=== PATIENT | male | born 1945 | race African-American/Black ===

== ENCOUNTER 2020-04-17 14:45 | Emergency (ER) | payer MEDICARE, MEDICAID ==
[2020-04-17] MEDS ORDERED: VANCOMYCIN HCL INJ 1000 MG VIAL IV ONE (16:09)
--- NOTE | 2020-04-17 16:11 | ER Document Report ---
ED Medical Screen (RME) - General Chief Complaint: Abscess Stated Complaint: ABSCESS/RIGHT FOOT Time Seen by Provider: 04/17/20 16:01 Mode of Arrival: Ambulatory Information source: Patient, Outside Facility Records Notes: HPI; 74-year-old male presents to the emergency room from an assisted living facility with a staff member who states they were sent to the emergency room by [facility] and care for an ulceration to his right lower leg that is chronic. Staff member states that when he was seen in the office today they were told that the ulceration goes all the way to the bone and that he needs to come to the emergency room for IV antibiotics. Staff member does not know how long the ulcer has been there. Denies any fevers. Not currently on any antibiotics. Patient offers no complaints. PE: Patient is alert to name only. Extremely hard of hearing. Offers no complaints. Lungs: Clear to auscultation without rales, rhonchi or wheezes heart: Regular rate rhythm without murmurs, rubs, gallops. Right lower leg with a dressing dry and intact. Did not move the dressing in triage. There is a weak right pedal pulse palpated. I have greeted and performed a rapid initial assessment of this patient. A comprehensive ED assessment and evaluation of the patient, analysis of test results and completion of the medical decision making process will be conducted by additional ED providers. I have specifically instructed the patient or family members with the patient to immediately return to any nursing staff should anything change in the patient's condition or with their chief complaint. TRAVEL OUTSIDE OF THE [place] IN LAST 30 DAYS: No - Related Data Allergies/Adverse Reactions: amitriptyline Allergy (Verified 04/17/20 16:06) amlodipine Allergy (Verified 04/17/20 16:06) shellfish derived Allergy (Verified 04/17/20 16:06)
--- NOTE | 2020-04-17 17:22 | RADIOLOGY REPORT (SQ) ---
EXAM DESCRIPTION: TIB FIB BILAT 2 VIEWS IMAGES COMPLETED DATE/TIME: 04/17/2020 4:02 pm REASON FOR STUDY: wound COMPARISON: None. NUMBER OF VIEWS: Four views. TECHNIQUE: Two radiographic images acquired of the right and left tibia and fibula to include the kn ee and ankle in at least one projection. LIMITATIONS: None. FINDINGS: MINERALIZATION: Osteopenia. BONES: No acute fracture or dislocation. No worrisome bone lesions. Moderate to severe pes planus b ilateral feet. SOFT TISSUES: Diffuse subcutaneous edema bilaterally. No radiopaque foreign body. OTHER: No other significant finding. IMPRESSION: 1. No acute fracture or destructive bone lesion in the lower legs bilaterally. 2. Moderate to severe pes planus bilateral feet. 3. Diffuse subcutaneous edema. TECHNICAL DOCUMENTATION: JOB ID: [id number] [employer]- All Rights Reserved Reading location - IP/workstation name: [email or web address]
[2020-04-17 17:29] LABS: ABSOLUTE BASOPHILS # (AUTO) 0.1 10^3/uL (0.0-0.2); ABSOLUTE EOSINOPHILS # (AUTO) 0.5 10^3/uL (0.0-0.6); ABSOLUTE LYMPHOCYTES (AUTO) 1.8 10^3/uL (0.5-4.7); ABSOLUTE MONOCYTES (AUTO) 0.7 10^3/uL (0.1-1.4); BASOPHILS % (AUTO) 0.9 % (0-2); EOSINOPHILS % (AUTO) 5.9 % (0-6); HEMATOCRIT 42.4 % (37.9-51.0); HEMOGLOBIN 14.1 g/dL (13.5-17.0); LYMPHOCYTES % (AUTO) 21.8 % (13-45); MEAN CORPUSCULAR HEMOGLOBIN 29.6 pg (27.0-33.4); MEAN CORPUSCULAR HGB CONC 33.3 g/dL (32.0-36.0); MEAN CORPUSCULAR VOLUME 89 fl (80-97); MONOCYTES % (AUTO) 9.2 % (3-13); PLATELET COUNT 282 10^3/uL (150-450); RED BLOOD COUNT 4.77 10^6/uL (4.35-5.55); RED CELL DISTRIBUTION WIDTH 15.6 % (11.5-14.0); SEGMENTED NEUTROPHILS % (AUTO) 62.2 % (42-78); TOTAL CELLS COUNTED % (AUTO) 100 %; WHITE BLOOD COUNT 8.1 10^3/uL (4.0-10.5)
[2020-04-17 17:54] LABS: ALBUMIN 3.9 g/dL (3.5-5.0); ALKALINE PHOSPHATASE 120 U/L (38-126); ANION GAP 9 (5-19); ASPARTATE AMINO TRANSFERASE 25 U/L (17-59); BILIRUBIN,DIRECT 0.3 mg/dL (0.0-0.4); BILIRUBIN,TOTAL 0.5 mg/dL (0.2-1.3); BLOOD UREA NITROGEN 20 mg/dL (7-20); C-REACTIVE PROTEIN 28.5 mg/L (<10.0); CALCIUM 9.4 mg/dL (8.4-10.2); CARBON DIOXIDE 25 mmol/L (22-30); CHLORIDE 105 mmol/L (98-107); GLUCOSE 90 mg/dL (75-110); POTASSIUM 4.1 mmol/L (3.6-5.0); TOTAL PROTEIN 7.4 g/dL (6.3-8.2)
[2020-04-17 18:22] LABS: ERYTHROCYTE SEDIMENTATION RATE 56 mm/hr (0-20)
--- NOTE | 2020-04-18 01:16 | ER Document Report ---
ED General - General Chief Complaint: Foot Injury Stated Complaint: ABSCESS/RIGHT FOOT Time Seen by Provider: 04/17/20 16:01 Mode of Arrival: Ambulatory Notes: Patient is a 74-year-old male that comes emergency department for chief complaint of an ulcerated area in the right lower extremity above the foot and extending up the leg about midway. Patient states that is been there for "years" he states it is because of peripheral vascular disease, he states that he was going to a executive [employer] business [employer] today to get his nails cut and they told him to come the emergency department. Patient is not a diabetic, has a history of [employer], hypertension, and he is on Lasix. Patient has no complaints, he states his leg feels the same as is always does. He denies fever/chills, nausea/vomiting, or any other complaints. Patient comes from an assisted living facility. TRAVEL OUTSIDE OF THE [place] IN LAST 30 DAYS: No - Related Data Allergies/Adverse Reactions: amitriptyline Allergy (Verified 04/17/20 16:06) amlodipine Allergy (Verified 04/17/20 16:06) shellfish derived Allergy (Verified 04/17/20 16:06) Past Medical History - General Information source: Patient, Outside Facility Records - Social History Smoking Status: Unknown if Ever Smoked Chew tobacco use (# tins/day): No Frequency of alcohol use: None Drug Abuse: None Lives with: Long-Term Family History: Reviewed & Not Pertinent Patient has homicidal ideation: No - Past Medical History Cardiac Medical History: Reports: Hx Hypertension - Immunizations Immunizations up to date: Yes Hx Diphtheria, Pertussis, Tetanus Vaccination: Yes Review of Systems - Review of Systems Constitutional: No symptoms reported EENT: No symptoms reported Cardiovascular: No symptoms reported Respiratory: No symptoms reported Gastrointestinal: No symptoms reported Genitourinary: No symptoms reported Male Genitourinary: No symptoms reported Musculoskeletal: See HPI Skin: See HPI Hematologic/Lymphatic: No symptoms reported Neurological/Psychological: No symptoms reported Physical Exam - Vital signs Vitals: Temp Pulse Resp BP Pulse Ox 98.0 F 64 20 161/101 H 100 04/17/20 21:53 04/17/20 21:53 04/17/20 21:53 04/17/20 21:53 04/17/20 21:53 - Notes Notes: GENERAL: Alert, interacts well. No acute distress. HEAD: Normocephalic, atraumatic. EYES: Pupils equal, round, and reactive to light. Extraocular movements intact. ENT: Oral mucosa moist, tongue midline. Oropharynx unremarkable. Airway patent. NECK: Full range of motion. Supple. Trachea midline. No lymphadenopathy. LUNGS: Clear to auscultation bilaterally, no wheezes, rales, or rhonchi. No respiratory distress. Non-tender chest wall. HEART: Regular rate and rhythm. No murmur ABDOMEN: Soft, non-tender. Non-distended. EXTREMITIES: Chronic bilateral lower extremity swelling with chronic skin changes bilaterally. Long nails with yellowish appearance. There is an area over the right mainly anterior distal leg before the ankle that has multiple skin excoriations, ulcerations, and some erythema with warmth. There is no purulent drainage, significant tenderness, induration, fluctuance, streaking. Distal neurovascular exam intact. Unremarkable otherwise. BACK: no cervical, thoracic, lumbar midline tenderness. No saddle anesthesia, normal distal neurovascular exam. Moves all extremities in full range of motion. NEUROLOGICAL: Alert and oriented x3. Normal speech. Cranial nerves II through XII grossly intact. Strength 5/5 in all extremities. PSYCH: Normal affect, normal mood. SKIN: Warm, dry, normal turgor. No rashes or lesions noted. Course - Re-evaluation Re-evalutation: Patient is smiling, talkative, has no complaints. He has peripheral vascular disease, chronic lower extremity swelling, chronic skin changes in the lower extremity, skin abrasions and ulcerations in the right distal leg with some erythema and warmth but no purulent drainage, induration, fluctuance, or complaints. Patient can ambulate. He states that his leg is basically baseline and only slightly worse with the redness. He is not a diabetic. He is not febrile, and denies chills, his vital signs are unremarkable except for hypertension which is chronic. Patient denies any symptoms including chest pain, shortness of breath, headache. CBC does not show leukocytosis or bandemia . ESR and CRP are slightly elevated, nonspecific. Patient has no joint involvement either. Creatinine slightly elevated, no comparison. Patient appears to have some developing cellulitis, he appears to need chronic care for his ongoing skin abnormalities and peripheral vascular disease, however I do not suspect sepsis, necrotizing fasciitis, or abscess at this time. Discussed with Dr. Sandoval. Discussed with patient. Patient will be discharged on antibiotics, referred to wound care, he was provided with this written referral, discussed expectations, follow-up, return precautions. Patient states appreciation and agreement. Stable and well-appearing at time of discharge. - Vital Signs Vital signs: Temp Pulse Resp BP Pulse Ox 98.0 F 64 35 H 191/126 H 100 04/17/20 21:53 04/17/20 21:53 04/18/20 04:00 04/18/20 04:00 04/18/20 04:00 - Laboratory Result Diagrams: 04/17/20 17:09 04/17/20 17:09 Laboratory results interpreted by me: 04/17/20 04/17/20 17:09 17:09 RDW 15.6 H ESR 56 H Creatinine 1.82 H Est GFR ( Amer) 44 L Est GFR (MDRD) Non-Af 37 L C-Reactive Protein 28.5 H Discharge - Discharge Clinical Impression: Peripheral vascular disease Cellulitis Qualifiers: Site of cellulitis: extremity Site of cellulitis of extremity: lower extremity Laterality: right Qualified Code(s): L03.115 - Cellulitis of right lower limb Skin ulceration Qualifiers: Non-pressure ulcer stage: unspecified non-pressure ulcer stage Qualified Code(s): L98.499 - Non-pressure chronic ulcer of skin of other sites with unspecified severity Condition: Stable Disposition: HOME, SELF-CARE Additional Instructions: There are chronic ulcerations in your lower leg, there also appears to be developing secondary infection, cellulitis. Please take the antibiotics as prescribed to completion. Elevate your leg as much as possible. Keep the area clean, clean gently with soap and water, place with clean dressings over the wounds daily, please follow-up with the wound care clinic closely for additional care. Return if you worsen including spreading redness, increased swelling, fever, or any other concerning or worsening symptoms. Prescriptions: Sulfamethoxazole/Trimethoprim [Bactrim Ds Tablet] 1 each PO BID #14 tablet Cephalexin Monohydrate [Keflex 500 mg Capsule] 500 mg PO QID #28 capsule
[2020-04-18] MEDS ORDERED: SULFAMETHOXAZOLE/TRIMETHOPRIM 800-160 MG TABLET PO ONE (01:20)
[2020-04-18] MEDS ORDERED: CEPHALEXIN 500 MG CAPSULE PO ONE (01:20)
[2020-04-18] MEDS ORDERED: VANCOMYCIN HCL INJ 1000 MG VIAL IV ONE (02:15)
[2020-04-18 10:17] VITALS: BP 169/69
== END 2020-04-18 04:55 ==
LOC: ER 14:45
DX: L03.115 Cellulitis of right lower limb (principal); L97.819 Non-pressure chronic ulcer of other part of right lower leg with unspecified severity; I73.9 Peripheral vascular disease, unspecified; S80.811A Abrasion, right lower leg, initial encounter; X58.XXXA Exposure to other specified factors, initial encounter; I10 Essential (primary) hypertension; J44.9 Chronic obstructive pulmonary disease, unspecified; Z79.899 Other long term (current) drug therapy; Z88.8 Allergy status to other drugs, medicaments and biological substances; Z91.013 Allergy to seafood
CPT/HCPCS: 36415; 80053; 83605; 85025; 85652; 86140; 87040; 96365; 99284; J3370